=== PATIENT | male | born 1960 | race Caucasian/White ===

== ENCOUNTER 2017-03-07 13:40 | Inpatient (IN) ==
--- NOTE | 2017-03-07 14:07 | PROVIDER DOCUMENTATION ---
HPI-Psychological Disorder - General Chief Complaint: Psych Stated Complaint: SI Time Seen by Provider: 03/07/17 13:46 Source: patient, EMS Allergies/Adverse Reactions: Patient Allergies Allergy/AdvReac Type Severity Reaction Status Date / Time lisinopril Allergy Severe affected Verified 03/07/17 13:43 kidney function Home Medications: Home Medication List Medication Instructions Recorded Confirmed Last Taken Type Clonidine [Catapres] 0.2 mg PO BID 11/22/13 03/07/17 01/23/14 04:00 History Diltiazem HCl [Dilt-Xr] 240 mg PO BID 11/22/13 03/07/17 01/23/14 04:00 History Hydrocodone/Acetaminophen [[place] 1 each PO Q4-6H PRN PRN #60 tablet 01/25/14 Unknown Rx 7.5-325 Tablet] Rivaroxaban [Xarelto] 10 mg PO Q24H #0 tablet 01/25/14 03/07/17 Unknown Rx - History of Present Illness-Psych Nature of Presenting Problem: 56 yo male presents to ER via EMS. EMS states he was found in a field with 2 listerine bottles beside him. EMS also reports that patient told them that he wanted to walk in front of a diesel truck. Patient states he drinks daily and takes opiates when they are available to him. On exam patient has an abnormally large and swollen right testicle that he states has been like that for a while. He states he was supposed to follow up for surgery but because mother he never did. There were no imaging studies related to this in medical chart. Onset/Duration: reports: just prior to arrival Timing: reports: still present Severity: reports: moderate Situational problems related to:: reports: N/A Psychiatric Complaints: reports: denies symptoms Substance Use: reports: alcohol, opiates Previous psych related hospitalizations?: No Patient arrived by:: EMS called by spouse/family Similar Symptoms Previously?: Yes Recently seen or treated by another doctor?: No Review of Systems - Adult - REVIEW OF SYSTEMS - ADULT Constitutional: reports: no symptoms reported Eyes: reports: no symptoms reported Ears, Nose, Mouth & Throat: reports: no symptoms reported Cardiovascular: reports: no symptoms reported Respiratory: reports: no symptoms reported Gastrointestinal: reports: no symptoms reported Genitourinary: reports: no symptoms reported Musculoskeletal: reports: no symptoms reported Integumentary: reports: no symptoms reported Neurological: reports: no symptoms reported Psychiatric: reports: no symptoms reported Endocrine: reports: no symptoms reported Hematologic/Lymphatic: reports: no symptoms reported Allergic/Immunologic: reports: no symptoms reported All Other Systems: Reviewed and Negative Past History - Adult - PAST MEDICAL HISTORY-ADULT Review of Records: reports: Old Records Reviewed, Nursing Assessment Review, Medications Reviewed, Social history reviewed & non-contributory. Cardiovascular: reports: HTN - IMMUNIZATION STATUS Childhood Immunizations: See Nurse Assessment Flu Vaccine: See Nurse Assessment - SOCIAL HISTORY Smoking: cigarettes, greater than 1 pack/day (2 ppd) Provider spent 3-5 mins advising pt. on dangers of tobacco.: Discussed manners to quit use, and f/u contacts for add'l counseling. Substance Use: alcohol, opiates Alcohol Use Frequency: every day Number of drinks per typical drinking period:: 16-20 drinks Living Situation: homeless Physical Exam-Psych Focus - Physical Exam-Psych Initial Vital Signs Reviewed: Yes Appearance: no memory impairment, alert, disheveled Neurological: alert, oriented x 3, agitated Behavior/Eye Contact/Speech: cooperative, other (slurred speech) Thoughts/Hallucinations: normal thought pattern HENMT: normocephalic/atraumatic Respiratory: normal breath sounds, no respiratory distress Cardiovascular: normal peripheral pulses, tachycardia Abdominal Exam: normal bowel sounds, soft, tenderness. negative: distended, guarding, rigid, rebound Extremity: normal inspection, no pedal edema Integumentary: abrasion(s) (right scrotum), erythema (around right scrotum inner groin bilaterally), swelling (large and swollen right testcle), tenderness Progress - PLAN OF CARE/RESULTS Progress/Plan/Lab Results: Vital Signs - 8 hr 03/07/17 13:43 03/07/17 14:00 03/07/17 14:17 Temperature 98.0 F Pulse Rate 97 H 100 H 101 H Respiratory Rate 18 19 22 Blood Pressure 90/58 101/66 86/69 O2 Sat by Pulse Oximetry 98 95 94 L 03/07/17 14:30 03/07/17 14:32 03/07/17 14:36 Temperature Pulse Rate 98 H 99 H 97 H Respiratory Rate 15 14 18 Blood Pressure 76/63 97/75 116/79 O2 Sat by Pulse Oximetry 98 95 97 03/07/17 14:39 03/07/17 14:41 03/07/17 14:45 Temperature Pulse Rate 93 H 100 H 95 H Respiratory Rate 19 12 26 H Blood Pressure 98/68 90/72 119/78 O2 Sat by Pulse Oximetry 95 95 03/07/17 14:52 03/07/17 14:55 03/07/17 14:59 Temperature Pulse Rate 94 H 95 H 92 H Respiratory Rate 21 17 19 Blood Pressure 125/90 121/88 131/93 O2 Sat by Pulse Oximetry 96 96 03/07/17 15:02 03/07/17 15:04 03/07/17 15:12 Temperature Pulse Rate 96 H 94 H 91 H Respiratory Rate 16 22 21 Blood Pressure 115/91 128/89 117/90 O2 Sat by Pulse Oximetry 95 98 96 03/07/17 15:14 03/07/17 15:28 03/07/17 15:30 Temperature Pulse Rate 95 H 93 H 94 H Respiratory Rate 16 17 20 Blood Pressure 135/82 98/68 113/73 O2 Sat by Pulse Oximetry 97 97 96 03/07/17 15:36 03/07/17 15:41 03/07/17 15:46 Temperature Pulse Rate 94 H 99 H 97 H Respiratory Rate 14 19 18 Blood Pressure 102/69 96/82 52/34 O2 Sat by Pulse Oximetry 97 100 97 03/07/17 15:49 03/07/17 15:50 03/07/17 16:12 Temperature Pulse Rate 94 H 93 H 92 H Respiratory Rate 16 20 18 Blood Pressure 107/84 119/83 118/77 O2 Sat by Pulse Oximetry 98 97 98 03/07/17 16:16 03/07/17 16:20 03/07/17 16:24 Temperature Pulse Rate 88 91 H 95 H Respiratory Rate 12 19 22 Blood Pressure 110/74 105/70 114/73 O2 Sat by Pulse Oximetry 97 97 96 03/07/17 16:28 03/07/17 16:31 03/07/17 16:34 Temperature Pulse Rate 90 89 96 H Respiratory Rate 22 13 Blood Pressure 134/87 116/81 116/68 O2 Sat by Pulse Oximetry 99 03/07/17 16:36 03/07/17 16:39 03/07/17 16:40 Temperature Pulse Rate 90 90 92 H Respiratory Rate 12 13 14 Blood Pressure 123/79 126/79 113/83 O2 Sat by Pulse Oximetry 98 97 98 03/07/17 16:42 03/07/17 17:08 03/07/17 17:11 Temperature Pulse Rate 93 H 92 H 93 H Respiratory Rate 16 18 17 Blood Pressure 124/85 119/70 104/70 O2 Sat by Pulse Oximetry 97 03/07/17 17:13 03/07/17 17:16 03/07/17 17:48 Temperature Pulse Rate 93 H 94 H 99 H Respiratory Rate 17 17 16 Blood Pressure 99/65 120/78 85/69 O2 Sat by Pulse Oximetry 97 96 98 03/07/17 17:50 03/07/17 17:56 03/07/17 17:58 Temperature Pulse Rate 99 H 93 H 97 H Respiratory Rate 17 23 23 Blood Pressure 109/68 106/83 111/70 O2 Sat by Pulse Oximetry 96 97 97 03/07/17 18:00 03/07/17 18:05 03/07/17 19:06 Temperature Pulse Rate 95 H 95 H 94 H Respiratory Rate 24 19 Blood Pressure 103/72 101/79 103/72 O2 Sat by Pulse Oximetry 97 98 96 Laboratory Results - last 24 hr 03/07/17 03/07/17 03/07/17 13:38 13:38 13:48 WBC RBC Hgb Hct MCV MCH MCHC RDW Std Deviation Plt Count MPV Immature Gran % (Auto) Neut % (Auto) Lymph % (Auto) [place] % (Auto) Eos % (Auto) Baso % (Auto) Immature Gran # (Auto) Neut # (Auto) Lymph # (Auto) [place] # (Auto) Eos # (Auto) Baso # (Auto) Sodium 132 L Potassium 2.7 L Chloride 89 L Carbon Dioxide 18 L Anion Gap 25 BUN 29 H Creatinine 2.5 H Estimated GFR/1.73 m2 27 BUN/Creatinine Ratio 12 Glucose 108 H Calculated Osmolality 271 Calcium 9.3 Total Bilirubin 0.30 AST 91 H ALT 65 H Alkaline Phosphatase 180 H Ammonia Creatine Kinase Troponin T Total Protein 7.6 Albumin 3.9 Globulin 4.0 Albumin/Globulin Ratio 1.0 TSH Free T4 Urine Source CLEAN CATCH Urine Color YELLOW Urine Clarity SL. CLOUDY A Urine pH 6.0 Ur Specific [place] 1.015 Urine Protein 1+(30 mg/dL) A Urine Ketones 1+(Small) A Urine Blood NEGATIVE Urine Nitrite NEGATIVE Urine Bilirubin NEGATIVE Urine Urobilinogen NORMAL Urine Microscopic RBC Not Reportable Urine WBC TRACE A Urine Microscopic WBC <10 Ur Epithelial Cells >10 A Urine Crystals NONE SEEN Urine Bacteria 1+ Urine Casts GRANULAR PRESENT Urine Yeast NONE SEEN Urine Glucose NEGATIVE Salicylates Urine Opiates Screen NONE DETECTED Ur Oxycodone Screen NONE DETECTED Urine Methadone Screen NONE DETECTED Acetaminophen Ur Barbituates Screen NONE DETECTED Ur Tricyclics Screen NONE DETECTED Ur Phencyclidine Scrn NONE DETECTED Ur Amphetamines Screen NONE DETECTED U Methamphetamines Scrn NONE DETECTED Urine MDMA Screen NONE DETECTED U Benzodiazepines Scrn NONE DETECTED Urine Cocaine Screen NONE DETECTED U Cannabinoids Screen NONE DETECTED Plasma/Serum Ethyl Alc 03/07/17 03/07/17 03/07/17 13:48 13:48 13:48 WBC 17.67 H RBC 5.41 Hgb 17.9 Hct 50.0 MCV 92.4 MCH 33.1 H MCHC 35.8 RDW Std Deviation 15.5 H Plt Count 238 MPV 13.3 H Immature Gran % (Auto) 1.4 H Neut % (Auto) 68.8 Lymph % (Auto) 14.7 L [place] % (Auto) 12.8 H Eos % (Auto) 2.0 Baso % (Auto) 0.3 Immature Gran # (Auto) 0.25 H Neut # (Auto) 12.14 H Lymph # (Auto) 2.60 [place] # (Auto) 2.27 H Eos # (Auto) 0.35 Baso # (Auto) 0.06 Sodium Potassium Chloride Carbon Dioxide Anion Gap BUN Creatinine Estimated GFR/1.73 m2 BUN/Creatinine Ratio Glucose Calculated Osmolality Calcium Total Bilirubin AST ALT Alkaline Phosphatase Ammonia Creatine Kinase Troponin T Total Protein Albumin Globulin Albumin/Globulin Ratio TSH 3.78 Free T4 1.76 H Urine Source Urine Color Urine Clarity Urine pH Ur Specific [place] Urine Protein Urine Ketones Urine Blood Urine Nitrite Urine Bilirubin Urine Urobilinogen Urine Microscopic RBC Urine WBC Urine Microscopic WBC Ur Epithelial Cells Urine Crystals Urine Bacteria Urine Casts Urine Yeast Urine Glucose Salicylates Urine Opiates Screen Ur Oxycodone Screen Urine Methadone Screen Acetaminophen Ur Barbituates Screen Ur Tricyclics Screen Ur Phencyclidine Scrn Ur Amphetamines Screen U Methamphetamines Scrn Urine MDMA Screen U Benzodiazepines Scrn Urine Cocaine Screen U Cannabinoids Screen Plasma/Serum Ethyl Alc 334 H 03/07/17 03/07/17 03/07/17 13:48 13:48 13:48 WBC RBC Hgb Hct MCV MCH MCHC RDW Std Deviation Plt Count MPV Immature Gran % (Auto) Neut % (Auto) Lymph % (Auto) [place] % (Auto) Eos % (Auto) Baso % (Auto) Immature Gran # (Auto) Neut # (Auto) Lymph # (Auto) [place] # (Auto) Eos # (Auto) Baso # (Auto) Sodium Potassium Chloride Carbon Dioxide Anion Gap BUN Creatinine Estimated GFR/1.73 m2 BUN/Creatinine Ratio Glucose Calculated Osmolality Calcium Total Bilirubin AST ALT Alkaline Phosphatase Ammonia Creatine Kinase 44 Troponin T 0.018 Total Protein Albumin Globulin Albumin/Globulin Ratio TSH Free T4 Urine Source Urine Color Urine Clarity Urine pH Ur Specific [place] Urine Protein Urine Ketones Urine Blood Urine Nitrite Urine Bilirubin Urine Urobilinogen Urine Microscopic RBC Urine WBC Urine Microscopic WBC Ur Epithelial Cells Urine Crystals Urine Bacteria Urine Casts Urine Yeast Urine Glucose Salicylates < 3.00 L Urine Opiates Screen Ur Oxycodone Screen Urine Methadone Screen Acetaminophen < 1.2 L Ur Barbituates Screen Ur Tricyclics Screen Ur Phencyclidine Scrn Ur Amphetamines Screen U Methamphetamines Scrn Urine MDMA Screen U Benzodiazepines Scrn Urine Cocaine Screen U Cannabinoids Screen Plasma/Serum Ethyl Alc 03/07/17 18:52 WBC RBC Hgb Hct MCV MCH MCHC RDW Std Deviation Plt Count MPV Immature Gran % (Auto) Neut % (Auto) Lymph % (Auto) [place] % (Auto) Eos % (Auto) Baso % (Auto) Immature Gran # (Auto) Neut # (Auto) Lymph # (Auto) [place] # (Auto) Eos # (Auto) Baso # (Auto) Sodium Potassium Chloride Carbon Dioxide Anion Gap BUN Creatinine Estimated GFR/1.73 m2 BUN/Creatinine Ratio Glucose Calculated Osmolality Calcium Total Bilirubin AST ALT Alkaline Phosphatase Ammonia 30 Creatine Kinase Troponin T Total Protein Albumin Globulin Albumin/Globulin Ratio TSH Free T4 Urine Source Urine Color Urine Clarity Urine pH Ur Specific [place] Urine Protein Urine Ketones Urine Blood Urine Nitrite Urine Bilirubin Urine Urobilinogen Urine Microscopic RBC Urine WBC Urine Microscopic WBC Ur Epithelial Cells Urine Crystals Urine Bacteria Urine Casts Urine Yeast Urine Glucose Salicylates Urine Opiates Screen Ur Oxycodone Screen Urine Methadone Screen Acetaminophen Ur Barbituates Screen Ur Tricyclics Screen Ur Phencyclidine Scrn Ur Amphetamines Screen U Methamphetamines Scrn Urine MDMA Screen U Benzodiazepines Scrn Urine Cocaine Screen U Cannabinoids Screen Plasma/Serum Ethyl Alc Orders Category Date Time Status Admit - [facility] Routine AdmDCTranf 03/07/17 19:16 Ordered Activity - Strict Bedrest ORDERED Care 03/07/17 19:16 Active Call Admitting on Arrival AT ADMISSION Care 03/07/17 19:18 Active IV Insertion ORDERED Care 03/07/17 14:24 Completed Neurological Check q4h Care 03/07/17 19:16 Active Resuscitation Status Routine Care 03/07/17 19:16 Ordered Vital Signs Order ROUTINE Care 03/07/17 19:16 Active Mechanical Soft Diet Diet 03/07/17 19:24 Active ABDOMEN/PELVIS W/O CONTRAST [CT] Stat Exams 03/07/17 18:19 Taken CHEST-1 VIEW [RAD] Stat Exams 03/07/17 14:25 Draft US SCROTUM [US] Stat Exams 03/07/17 15:36 Draft ACETAMINOPHEN [TDM] Stat Lab 03/07/17 13:48 Completed ALCOHOL BLOOD Stat Lab 03/07/17 13:48 Completed ALCOHOL BLOOD Stat Lab 03/07/17 18:52 Received AMMONIA [CHEM] Stat Lab 03/07/17 18:52 Completed CBC WITH ELECTRONIC DIFF [HEME] Stat Lab 03/07/17 13:48 Completed CK PROFILE [SP CHEM] Stat Lab 03/07/17 13:48 Completed COMPREHENSIVE METABOLIC PANEL [CHEM] Stat Lab 03/07/17 13:48 Completed FREE T4 Stat Lab 03/07/17 13:48 Results MAGNESIUM [CHEM] Stat Lab 03/07/17 18:52 Received SALICYLATES [TDM] Stat Lab 03/07/17 13:48 Completed TROPONIN T Stat Lab 03/07/17 13:48 Completed TSH Stat Lab 03/07/17 13:[address] W/POSS RFLX CULT [URINALYSIS] Stat Lab 03/07/17 13:38 Completed URINE DRUG SCREEN PL Stat Lab 03/07/17 13:38 Completed VITAMIN B12 Stat Lab 03/07/17 13:48 Results 0.9% Sodium Chloride Inj [Ns] 1,000 ml Med 03/07/17 14:33 Discontinued .ROUTE As Directed 0.9% Sodium Chloride Inj [Ns] 1,000 ml Med 03/07/17 19:16 Active IV 75 mls/hr 0.9% Sodium Chloride Inj [Ns] 1,000 ml Med 03/07/17 14:36 Discontinued IV 999 mls/hr CefTRIAXONE 1 GM/NS [Rocephin 1 gm/Ns] Med 03/07/17 16:57 Discontinued 1 gm in 50 ml IV NOW CefTRIAXONE 1 GM/NS [Rocephin 1 gm/Ns] Med 03/07/17 19:30 Ordered 1 gm in 50 ml IV Q24H Lorazepam [Ativan] Med 03/07/17 19:16 Active 2 mg IV Q2H PRN PRN Morphine Med 03/07/17 19:16 Active 1 mg IV Q4H PRN PRN Mvi [M.v.i.-12] 10 ml Med 03/08/17 09:00 Active Folic Acid 1 mg Magnesium Sulfate 1 gm Thiamine 100 mg 0.9% Sodium Chloride Inj [Ns] 1,000 ml IV DAILY Mvi [M.v.i.-12] 10 ml Med 03/07/17 14:24 Discontinued Folic Acid 1 mg Magnesium Sulfate 1 gm Thiamine 100 mg 0.9% Sodium Chloride Inj [Ns] 1,000 ml IV NOW Nicotine Patch [Nicoderm Patch] Med 03/07/17 19:16 Discontinued 14 mg TD NOW ONE Ns + KCl 20 Meq 1,000 ml Med 03/07/17 18:19 Discontinued IV 500 mls/hr Ns + KCl 20 Meq 1,000 ml Med 03/07/17 18:24 Discontinued IV 500 mls/hr Ondansetron [Zofran] Med 03/07/17 14:50 Discontinued 4 mg .ROUTE .STK-MED ONE Ondansetron [Zofran] Med 03/07/17 14:50 Discontinued 4 mg IV NOW ONE Ondansetron [Zofran] Med 03/07/17 19:16 Active 4 mg IV Q4H PRN PRN Pantoprazole [Protonix] Med 03/07/17 19:16 Discontinued 40 mg IV NOW ONE Potassium Chloride E.r. [Klor-Con] Med 03/07/17 17:06 Discontinued 60 meq PO NOW ONE Sodium Chloride 0.9% Med 03/07/17 19:16 Discontinued 10 ml INJ NOW ONE Telemetry [OM.EQ] Routine Oth 03/07/17 19:16 Active EKG [EKG] Stat Ther 03/07/17 14:40 Draft Transfer/Admit Order [TRANSFER] Routine Transfer 03/07/17 19:16 Ordered 1930-Notified patient of admission; he verbalized understanding. Result Diagrams: 03/07/17 13:48 03/07/17 13:48 - XRAY 1 XRAY Study: Chest Impression: Normal (negative chest) XRAY Interpretation: Interpreted by Dr. Calzada - ULTRASOUND (By Radiology) 1 US Study: Scrotum Impression: Abnormal (testicles without a distinct mass. No hydroceles. Epididymi not seen. Large heterogeneous mass like area measuring 8.5cm with flow in the scrotum but separate from the testicles. unknown etiology.) US Results: Interpreted by Dr. Calzada - CONSULTS/PCP/HOSPITALIST Notification #1 *Consult/PCP/Hospitalist*: Dr. Bradley Time Discussed: 19:15 (hospitalist) Reason/Comments: orders given Consult Disposition: Admit Departure - Departure Time of Disposition Decision: 18:15 DIAGNOSIS: Abnormal blood electrolyte level, Scrotal mass Alcohol intoxication Qualifiers: Complication of substance-induced condition: uncomplicated Qualified Code(s): F10.120 - Alcohol abuse with intoxication, uncomplicated Acute renal failure Qualifiers: Acute renal failure type: unspecified Qualified Code(s): N17.9 - Acute kidney failure, unspecified Disposition: ADMITTED INPATIENT 09 Certified Medical Emergency: Emergent Condition: Fair Referrals and Follow-Ups: None,PCP [Primary Care Provider] - Attestation - Physician/ HAO Attestation Patient care was provided by Advanced Practice Provider:: Yes Advanced Practice Provider:: Rachell Alcaraz Advanced Practice Provider documentation review:: The Mid-level provider documentation, treatment plan and medical decision making was reviewed by the physician who agrees with all treatment and medical decision making by the [facility].
[2017-03-07 14:13] LABS: MANUAL DIFF NEEDED? NO
[2017-03-07 14:21] LABS: BASO% 0.3 % (0.0-0.8); EOS# 0.35 X1000 (0.0-0.7); HEMOGLOBIN 17.9 g/dL (14.0-18.0); IMM GRAN# 0.25 X1000 (0.0-0.04); IMM GRAN% 1.4 % (0.0-0.5); LYMPH% 14.7 % (20.5-51.1); MCH 33.1 PG (27-31); MCHC 35.8 g/dL (33-37); MCV 92.4 FL (81-99); MONO# 2.27 X1000 (0.11-0.59); MONO% 12.8 % (1.7-9.3); MPV 13.3 FL (7.4-10.4); NEUT% 68.8 % (42.2-75.2); PLT 238 X1000 (130-400); RBC 5.41 XMIL (4.7-6.1)
[2017-03-07] MEDS ORDERED: NS 1,000 ML ONE (14:33)
[2017-03-07] MEDS ORDERED: NS 1,000 ML IV ONE ×2 (14:36→19:16)
[2017-03-07] MEDS: M.V.I.-12 10 ML, FOLIC ACID 1 MG, MAGNESIUM SULFATE 1 GM, THIAMINE 100 MG in NS 1,000 ML IV ONE ×2 (14:37→15:19)
[2017-03-07 14:41] LABS: ACETAMINOPHEN < 1.2 ug/mL (10-30)
[2017-03-07] MEDS ORDERED: ZOFRAN IV ONE (14:50)
[2017-03-07] MEDS ORDERED: ZOFRAN ONE (14:50)
[2017-03-07 14:59] LABS: FREE T4 1.76 ng/dL (0.93-1.70)
[2017-03-07 15:00] LABS: ALBUMIN 3.9 g/dL (3.5-5.0); CALCIUM 9.3 mg/dL (8.8-10.2); POTASSIUM 2.7 mmol/L (3.5-5.1); TOTAL BILIRUBIN 0.3 mg/dL (0.20-1.00); TOTAL PROTEIN 7.6 g/dL (6.3-8.3)
--- NOTE | 2017-03-07 15:04 | ED EKG INTERP ---
This chart was entered by Eduarda Gamez Scribe, acting as scribe for Acosta Wayne MD. EKG Interpretation - EKG Time of EKG reading by physician:: 14:51 EKG Read and Signed by:: Acosta Wayne EKG Interpretation (*Must complete 3 of following elements*): Abnormal Rate: 93 Rhythm: normal sinus rhythm Comments: prolonged QT This chart was documented by the indicated scribe, (Eduarda Gamez Scribe) and accurately reflects the services I performed and decisions made by me, Acosta Wayne MD, as attested by the provider's signature.
--- NOTE | 2017-03-07 15:12 | EKG Report ---
Test Performed on : 03/07/2017 2:51:20 PM Test Reason : hypotensive Blood Pressure : / mmHG Vent. Rate : 093 BPM Atrial Rate : 093 BPM P-R Int : 166 ms QRS Dur : 100 ms QT Int : 396 ms P-R-T Axes : 056 -04 054 degrees QTc Int : 492 ms Normal sinus rhythm. Prolonged QT Abnormal ECG When compared with ECG of 22-NOV-2013 09:41, Vent. rate has increased BY 40 BPM QT has lengthened Unconfirmed Result
--- NOTE | 2017-03-07 15:19 | Diag Imaging Result Document ---
PROCEDURE NAME: CHEST-1 VIEW - 03/07/2017 CHEST SINGLE VIEW: COMPARISON: Compared to 01/18/2014. FINDINGS: The lungs are well expanded. The heart is not enlarged. The vessels are not distended. No pneumonia. No pleural effusions identified. IMPRESSION: Negative chest.
[2017-03-07 16:09] LABS: BILIRUBIN URINE NEGATIVE (NEGATIVE); BLOOD URINE NEGATIVE (NEGATIVE); CLARITY SL. CLOUDY (CLEAR); COLOR YELLOW; GLUCOSE URINE NEGATIVE (NEGATIVE); LEUKOCYTES URINE TRACE (NEGATIVE); NITRITE URINE NEGATIVE (NEGATIVE); PROTEIN URINE 1+(30 mg/dL) mg/dL (NEGATIVE); SP GRAVITY URINE 1.015; UROBILINOGEN URINE NORMAL
[2017-03-07 16:10] LABS: URINE CAST GRANULAR PRESENT /LPF; URINE CRYSTAL NONE SEEN /HPF; URINE CULTURE PL NEEDED? YES; URINE EPITHELIAL CELLS >10 /HPF (<10); URINE SOURCE CLEAN CATCH; URINE WBC <10 /HPF (<10)
[2017-03-07 16:31] LABS: UR AMPHETAMINES QUAL NONE DETECTED (NONE DETECT); UR BARBITUATES QUAL NONE DETECTED (NONE DETECT); UR BENZODIAZEPIN QUAL NONE DETECTED (NONE DETECT); UR CANNABINOIDS QUAL NONE DETECTED (NONE DETECT); UR COCAINE QUAL NONE DETECTED (NONE DETECT); UR MDMA QUAL NONE DETECTED (NONE DETECT); UR METHADONE QUAL NONE DETECTED (NONE DETECT); UR METHAMPHETAMINE QUAL NONE DETECTED (NONE DETECT); UR OPIATES QUAL NONE DETECTED (NONE DETECT); UR OXYCODONE QUAL NONE DETECTED (NONE DETECT); UR PCP QUAL NONE DETECTED (NONE DETECT); UR TCA QUAL NONE DETECTED (NONE DETECT)
[2017-03-07] MEDS ORDERED: ROCEPHIN 1 GM/NS 1 GM/50 ML IVPB IV ONE (16:57)
[2017-03-07] MEDS ORDERED: KLOR-CON PO ONE (17:06)
--- NOTE | 2017-03-07 17:09 | Diag Imaging Result Document ---
PROCEDURE NAME: US SCROTUM - 03/07/2017 SCROTAL ULTRASOUND: FINDINGS: The right testicle measures 3.7 cm in length and the left testicle measures 4.7 cm in length. Somewhat heterogeneous echotexture bilaterally. Blood flow is documented to both testicles. No distinct testicular mass. Neither epididymis is identified. No hydroceles. There is a large heterogeneous area within the sac measuring approximately 4.8 x 8.5 x 4.5 cm. There is blood flow through this area. No hydroceles. IMPRESSION: Nonspecific large heterogeneous area with flow in the scrotal sac but separate from the testicles of uncertain etiology. This measures over 8.5 cm in length. Tumor or infection are the mostly likely diagnosis. A preliminary report was given at 4:49 PM. MTDD
[2017-03-07] MEDS ORDERED: NS + KCL 20 MEQ 1,000 ML IV SCH ×2 (18:19→18:24)
[2017-03-07] MEDS ORDERED: SODIUM CHLORIDE 0.9% INJ ONE (19:16)
[2017-03-07] MEDS ORDERED: PROTONIX IV ONE ×3 (19:16→22:00)
[2017-03-07] MEDS ORDERED: NICODERM PATCH TD ONE (19:16)
[2017-03-07] MEDS ORDERED: MORPHINE IV PRN (19:16)
[2017-03-07] MEDS ORDERED: ZOFRAN IV PRN (19:16)
[2017-03-07] MEDS ORDERED: ROCEPHIN 1 GM/NS 1 GM/50 ML IVPB IV SCH (19:30)
--- NOTE | 2017-03-07 19:53 | Diag Imaging Result Document ---
PROCEDURE NAME: ABDOMEN/PELVIS W/O CONTRAST - 03/07/2017 CT ABDOMEN AND PELVIS WITHOUT CONTRAST: FINDINGS: No contrast administered per request of the referring provider. A dose reduction protocol was used. Compared with images of the abdomen from the CT renal angiogram of 09/19/2013. The liver is of diffusely decreased attenuation consistent with fatty infiltration. There is no focal liver lesion identified. The spleen is unremarkable except for a calcified granulomas from old granulomatous disease. The adrenal glands, and pancreas are unremarkable. There are no calcified gallstones or pericholecystic inflammation identified. There are nonobstructing stones in the bilateral kidneys. There is no ureteral stone or hydronephrosis identified. The distal most ureters are obscured by artifacts from bilateral metallic hip prostheses. There are no abnormally enlarged lymph nodes identified. There is a large right inguinal hernia which contains small bowel. The inferior extent of the hernia is not included on this exam. The hernia may also include the cecum. It is not clear if the hernia corresponds with the abnormality seen on the earlier scrotal ultrasound from today. There is no evidence of bowel obstruction. There is no gross bowel wall thickening identified. There is no abscess identified. There is no free air. There is no substantial free fluid identified. IMPRESSION: 1. Large right inguinal hernia which contains small bowel and apparently the cecum. The inferior extent of the hernia is located below the lowest image of the exam. There is no evidence of bowel obstruction. There is no gross bowel wall thickening identified. 2. No abscess identified. No free air. 3. Fatty infiltration of liver. 4. Nonobstructing stones in bilateral kidneys. 5. Please note that this exam does not specifically evaluate the scrotum. [facility]
[2017-03-07] MEDS: ATIVAN IV PRN (22:10)
[2017-03-07] MEDS ORDERED: CALMOSEPTINE OINTMENT TOP PRN (22:15)
[2017-03-07] MEDS ORDERED: SODIUM CHLORIDE 0.9% 10 ML ONE (22:18)
[2017-03-07] MEDS: FLOMAX PO SCH (22:27)
[2017-03-08 06:14] LABS: MANUAL DIFF NEEDED? NO
[2017-03-08 06:30] LABS: BASO% 0.2 % (0.0-0.8); EOS# 0.12 X1000 (0.0-0.7); EOS% 0.8 % (0.0-10.0); HEMATOCRIT 40.4 % (42.0-52.0); IMM GRAN% 0.7 % (0.0-0.5); LYMPH# 1.94 X1000 (1.2-3.4); LYMPH% 12.6 % (20.5-51.1); MCH 32.6 PG (27-31); MCHC 34.7 g/dL (33-37); MONO# 1.93 X1000 (0.11-0.59); MONO% 12.6 % (1.7-9.3); MPV 12.7 FL (7.4-10.4); NEUT% 73.1 % (42.2-75.2); PLT 244 X1000 (130-400)
[2017-03-08 06:49] LABS: AGAP 19; ALBUMIN 3.1 g/dL (3.5-5.0); ALKALINE PHOSPHATASE 128 U/L (32-122); BUN 19 mg/dL (8-22); CALCIUM 7.3 mg/dL (8.8-10.2); CHLORIDE 103 mmol/L (98-107); COSMO 276; GOT 68 U/L (10-34); GPT 49 U/L (10-44); POTASSIUM 3.3 mmol/L (3.5-5.1); SODIUM 138 mmol/L (136-145); TCO2 16 mmol/L (25-35); TOTAL PROTEIN 4.9 g/dL (6.3-8.3)
[2017-03-08] MEDS ORDERED: KLOR-CON PO ONE (06:52)
[2017-03-08] MEDS ORDERED: MORPHINE IV PRN (07:48)
[2017-03-08] MEDS ORDERED: APRESOLINE PO SCH (08:00)
[2017-03-08] MEDS: APRESOLINE IV PRN ×2 (08:36→23:11)
[2017-03-08] MEDS: NICODERM PATCH TD SCH (08:36)
[2017-03-08] MEDS: ATIVAN IV PRN ×2 (08:36→21:16)
[2017-03-08] MEDS: APRESOLINE PO SCH ×3 (08:36→21:16)
[2017-03-08] MEDS: M.V.I.-12 10 ML, FOLIC ACID 1 MG, MAGNESIUM SULFATE 1 GM, THIAMINE 100 MG in NS 1,000 ML IV SCH (09:39)
[2017-03-08] MEDS ORDERED: VANCOMYCIN IV PER PHARMACY MISC SCH (10:15)
[2017-03-08] MEDS ORDERED: VANCOMYCIN 1,800 MG in NS 250 ML IV ONE ×4 (11:00)
[2017-03-08] MEDS: PROTONIX IV SCH (16:04)
[2017-03-08] MEDS: SODIUM CHLORIDE 0.9% INJ SCH (16:04)
[2017-03-08] MEDS: ROCEPHIN 1 GM/NS 1 GM/50 ML IVPB IV SCH (16:08)
[2017-03-08] MEDS: LIBRIUM PO SCH ×2 (16:40→23:11)
--- NOTE | 2017-03-08 16:53 | HISTORY AND PHYSICAL ---
CHIEF COMPLAINT: Patient brought in by the EMS secondary to altered mental status. HISTORY OF PRESENT ILLNESS: A 56-year-old, male with a past medical history of hypertension, alcohol abuse and possible drug abuse brought in by EMS. EMS states that he was he was found in a field with 2 bottles, apparently alcohol. This patient is a heavy drinker and apparently he stopped drinking 5-6 days ago and yesterday he started having anxiety and actually he wanted to kill himself. He made a plan. His plan was to step in front of a truck. Apparently as per the patient, he went to a place to do that but then he had more anxiety and he could not do it so he decided to go ahead and start drinking. As per the patient, he was walking back home and he felt so weak that he decided to just take a rest and then EMS picked him up and brought him over here. Upon examination in the emergency department, he as found to have a large testicles, also noticed there is some redness, hot, and signs of scratching, likely this patient has cellulitis. An alcohol level was elevated, with a WBC of 17.6. Hypokalemic. REVIEW OF SYSTEMS: A 56 years old disheveled male, with no suicidal ideation at this moment. The rest of the 14 points of the review of system were reviewed. All of them negative except as per HPI. FAMILY HISTORY: Noncontributory. PAST MEDICAL HISTORY: Alcohol abuse, possible drug abuse, hypertension. PAST SURGICAL HISTORY: As per the records, he had left hip degenerative joint disease status post left total hip arthroplasty done in 2013. SOCIAL HISTORY: This patient drinks every day, typically 16-20 beers, apparently he is homeless and if has to opportunity of taking pills like opiates he will do it. OBJECTIVE: Vital Signs: Upon admission temperature 98 degrees, pulse 97, blood pressure 90/58, O2 saturation 98 on room air. HEENT: Head normocephalic. No trauma. PERRLA. Neck: Supple. No JVD. No masses. Central trachea. Chest: Clear to auscultation. No wheezing. No rales. Mucosa is dry. Abdomen: Soft, nontender, nondistended. No hepatosplenomegaly. Extremities: No edema. No clubbing. No cyanosis. Genital area: He has a large right inguinal hernia, the size is around 15-17 cm of diameter. Neurologic: The patient is alert and oriented x3. No focal neurological deficits. No suicidal ideation. At this moment, as per the patient. LABORATORY DATA: Upon admission WBC 17.6, hemoglobin 17.9, hematocrit 50, platelets 238,000. Sodium 132, potassium 2.7, chloride 89, bicarbonate 18, BUN 29, creatinine 2.5, glucose 108, calcium 9.3, AST 91, AST 61, alkaline phosphatase 180. ASSESSMENT AND PLAN: 1. Altered mental status, this patient was found in the field, as per the patient, he just had a generalized weakness. This condition is getting much better, he is alert and oriented x3 at this moment with no focal neurological deficits. 2. Suicidal ideation, he started having anxiety and actually he wanted to kill himself. He made a plan. His plan was to step in front of a truck. Apparently as per the patient, he went to a place to do it but then he had more anxiety and he could not do it so he decided to go ahead and start drinking, he will be here with observation every hour by our nurses, 3. Scrotal cellulitis, this patient has been placed on ceftriaxone and vancomycin. As per the patient the pain is a little bit better. We will continue with the same management for now. 4. Large right inguinal hernia. We did a CT scan that showed a right inguinal hernia which contains small bowel and apparently the cecum as well. Probably we need to take care 1st of the infection and after that we can either transfer this patient to another facility to be able to get an evaluation by Urology or we can set up an appointment for him. But this patient is homeless and if we send this patient out of the hospital probably he will not go to his appointment. So probably we will need to do it house once this patient is more stable. 5. Alcohol intoxication, this patient is an alcoholic. I am going to start this patient on Librium and I want to keep this patient on Ativan p.r.n. 6. Hypertension, this patient when he came in, his blood pressure was around 80s and 90s but today he started having high blood pressure. I started this patient already on hydralazine 3 times a day and also 10 mg p.r.n. IV. In the morning, his blood pressure was around 180 and now he is around 130s, we will continue to monitor. 7. Deep venous thrombosis prophylaxis. This patient is on Lovenox. 8. Gastrointestinal prophylaxis. This patient will be on pantoprazole. cc: Aries Johnson MD MTDD
[2017-03-08] MEDS: FLOMAX PO SCH (21:16)
[2017-03-08] MEDS ORDERED: VANCOMYCIN 1,300 MG in NS 250 ML IV SCH ×4 (23:00)
[2017-03-09] MEDS ORDERED: CATAPRES PO ONE (00:58)
[2017-03-09] MEDS: LIBRIUM PO SCH ×4 (04:33→22:39)
[2017-03-09] MEDS: APRESOLINE IV PRN (05:51)
[2017-03-09 06:06] LABS: MANUAL DIFF NEEDED? NO
[2017-03-09 06:26] LABS: BASO% 0.2 % (0.0-0.8); EOS# 0.13 X1000 (0.0-0.7); HEMATOCRIT 38.6 % (42.0-52.0); HEMOGLOBIN 13.3 g/dL (14.0-18.0); IMM GRAN# 0.07 X1000 (0.0-0.04); IMM GRAN% 0.6 % (0.0-0.5); LYMPH# 1.71 X1000 (1.2-3.4); LYMPH% 13.7 % (20.5-51.1); MCH 32.6 PG (27-31); MCHC 34.5 g/dL (33-37); MCV 94.6 FL (81-99); MONO% 12.8 % (1.7-9.3); MPV 13.3 FL (7.4-10.4); NEUT% 71.7 % (42.2-75.2); PLT 245 X1000 (130-400); RBC 4.08 XMIL (4.7-6.1)
[2017-03-09 06:36] LABS: AGAP 12; BUN 13 mg/dL (8-22); CALCIUM 7.9 mg/dL (8.8-10.2); CHLORIDE 108 mmol/L (98-107); COSMO 277; POTASSIUM 2.9 mmol/L (3.5-5.1); SODIUM 139 mmol/L (136-145); TCO2 20 mmol/L (25-35)
[2017-03-09] MEDS ORDERED: KLOR-CON PO ONE (07:46)
[2017-03-09] MEDS ORDERED: CALCIUM GLUCONATE 1 GM in NS 50 ML IV ONE (08:00)
[2017-03-09] MEDS: NICODERM PATCH TD SCH (09:08)
[2017-03-09] MEDS: LOVENOX SUBQ SCH (09:08)
[2017-03-09] MEDS: CATAPRES PO SCH (09:09)
[2017-03-09] MEDS: APRESOLINE PO SCH ×3 (09:09→20:30)
[2017-03-09] MEDS: ATIVAN IV PRN ×3 (09:09→20:32)
[2017-03-09] MEDS: M.V.I.-12 10 ML, FOLIC ACID 1 MG, MAGNESIUM SULFATE 1 GM, THIAMINE 100 MG in NS 1,000 ML IV SCH (09:28)
--- NOTE | 2017-03-09 09:42 | PROGRESS NOTE ---
DATE: 03/09/2017 SUBJECTIVE: The patient states that he is feeling much better. He states his rectal pain has decreased. He is able to get up and down. He is having less scrotal pain. He states the edema is the same as it has been for the last 6-8 months. He denies any alcohol withdrawal. OBJECTIVE: Vital Signs: Blood pressure is 129/84, with a heart rate of 111, respirations are 18, temperature is 97.9 degrees, with room air saturations of 98-100%. Cardiovascular: Regular rate and rhythm. He is tachycardic. S1 and S2 are appreciated. Pulmonary: Breath sounds are clear with no increased work of breathing noted. Chest does rise and fall symmetrically with respiration. Gastrointestinal: Abdomen is soft, nontender, nondistended with bowel sounds in all 4 quadrants. : Enlarged scrotum is noted. Soft, nontender to palpation, with no redness or warmth. Neurologic: He is alert and oriented x3. Cranial nerves 2-12 grossly intact. No tremor is noted. Extremities: No clubbing, cyanosis, or edema. Calves are nontender. Pulses are palpable x4. Labs: WBC is 12.5, with hemoglobin 13.3, hematocrit 38.6, and platelets of 245, 000. Sodium is 139, potassium 2.9, BUN 13, creatinine 0.8, with a calcium of 7.9. ASSESSMENT: 1. Altered mental status. This has resolved. The patient is currently alert and oriented x3 with no focal neurological deficits. 2. Suicidal ideation. The patient denies any suicidal ideation at present. He states that he feels like it was due to alcohol withdrawal. Once he drink alcohol, he had no further desire to kill himself. 3. Scrotal cellulitis. We will continue with his antibiotics. His scrotum is enlarged. He states that this has been this way for the last 6-8 months. There is no redness and there is no tenderness. We will continue with his antibiotics. 4. Large right inguinal hernia. He will need to be ultimately evaluated by urology. This can be set up on an outpatient basis. At present, we will continue with antibiotics for the scrotal cellulitis. This must be cleared before any manipulation can be performed. 5. Alcohol intoxication. The patient normally drinks 16-20 beers,. It has been about 48 hours since he has had his last beer. He is currently on a banana bag with a Librium taper and as needed Ativan. He has no tremors. He denies any hallucinations. 6. Hypertension. We will continue to follow his vital signs and treat appropriately. 7. Hypokalemia. We will supplement and trend his labs. 8. Hypocalcemia. We will supplement and trend his labs. 9. Deep venous thrombosis prophylaxis. We will continue Lovenox. 10. Gastrointestinal prophylaxis. We will continue pantoprazole. Dictated by KRIS Reddy for Rafat Flex Morrison MD cc: KRIS Reddy Addendum: I personally evaluated and examined the patient in conjunction to the [employer] and agreed with her assessments and plans. We are waiting for psy to clear before we can plan to discharge him. Denies having any suicidal or homicidal ideations. MTDD
[2017-03-09] MEDS: VANCOMYCIN 1,800 MG in NS 500 ML IV SCH ×2 (11:34→22:39)
[2017-03-09] MEDS: PROTONIX IV SCH (14:43)
[2017-03-09] MEDS: SODIUM CHLORIDE 0.9% INJ SCH (14:43)
[2017-03-09] MEDS: KEFLEX PO SCH ×2 (14:43→20:31)
[2017-03-09] MEDS: ROCEPHIN 1 GM/NS 1 GM/50 ML IVPB IV SCH (16:51)
--- NOTE | 2017-03-09 18:16 | CONSULTATION ---
DATE OF CONSULTATION: 03/09/2017 HISTORY OF PRESENT ILLNESS: This is a 56-year-old, alcoholic male, who presented after a suicide attempt and alcohol overdose, who was found down and presented emergency department. He was admitted and had been treated with IV fluids and DT prophylaxis and vitamin replacement. He had a large right inguinal hernia noted on exam. CT scan was obtained that confirmed this he also has some skin changes overlying this, consistent with excoriation which he picks at regularly. Denies any nausea, vomiting, or changes in bowel habits. History somewhat difficult because he is a little drowsy still from his overdose. Who was admitted on the . PAST MEDICAL HISTORY: 1. Alcoholism. 2. Hypertension. PAST SURGICAL HISTORY: He has had bilateral hip replacements. Had an inguinal hernia, but he states he has had this for most of his life. SOCIAL HISTORY: Drinks every day, 16 to 20 beers, homeless. Does use prescription narcotics. 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 FAMILY HISTORY: Noncontributory. REVIEW OF SYSTEMS: 10 point negative other than HPI PHYSICAL EXAMINATION: Vital Signs: Temperature is 98.1 degrees, pulse 109, blood pressure 153/99, oxygen saturation 100% on room air. General: He is alert, in no acute distress. Does appear warranted, although he is quite disheveled and unkempt. Cardiovascular: Normal rate and regular rhythm. Pulmonary: No increased work of breathing. Abdomen: Soft, nontender, nondistended. There is a large right inguinal hernia that is at least partially reducible. There is no erythema of the skin. There is some chronic excoriations and scabbing on the right scrotum, which he scratches and picks at. The left side it is difficult to tell if there is a hernia here due to the size of the right-sided hernia, but do not feel anything obvious. Integument: Otherwise warm and dry without lower extremity edema. There is bilateral hip incision from his previous hip replacements. I do not feel any inguinal adenopathy and no cervical adenopathy. No jaundice on his integument exam. Neurologic: Sleepy but arousable flat affect. Psychiatric: not agitated LABS: White count 12, hematocrit 38, platelets are 245,000. Creatinine 0.8, this down from 2.5 at admission. Glucose 93. LFTs: AST and ALT are mildly elevated. On admission 91, 65, alkaline phosphatase 180. Bilirubin is normal. I do not see coags. Check this admission. Urinalysis: Urine drug screen is negative but his plasma alcohol was 224. No nitrates or leukocyte esterase noted in his urine. CT scan shows a large right inguinal hernia. Small bowel and cecum, not fully characterized on the CT scan, but there is no evidence of abscess or free air. Gets renal stones bilaterally. Ultrasound of scrotum shows large heterogeneous area with flow, 8.5 cm in length adjacent to the scrotum. No evidence of testicular torsion. ASSESSMENT AND PLAN: This is a 56-year-old alcoholic male admitted with alcohol overdose, toxicity, and suicide attempt. He has a large chronic longstanding right inguinal hernia that is very soft. I do not see any acute skin changes. There is some chronic excoriations related to scratching over the right hemiscrotum, but this is not ulceration, very superficial, and the skin appears to be healthy and intact and underlying this area. He is not clinically obstructed. I do not see any evidence of bowel compromise on exam or on CT scan, and it is at least partially reducible. Given all that he has got medically going on, do not recommend surgical repair at this time, especially with the focal superficial skin infection of his right scrotum. Recommend treating this with antibiotics and local wound care prior to undergoing elective hernia repair. I have given him my card. Continue to follow along, but right now his medical issues are more pressing and we can see him as an outpatient to schedule his surgery. I have discussed risks, benefits, and alternatives of this with the patient. He understands and discussed signs and symptoms of obstruction. He understands and will present back if this develops. Although given the broad-based nature of the hernia, suspect this is unlikely to happen. cc: Kelly Thompson MD [facility]
[2017-03-09] MEDS: FLOMAX PO SCH (20:31)
[2017-03-09] MEDS ORDERED: KLOR-CON PO SCH (21:00)
[2017-03-10] MEDS: KEFLEX PO SCH ×4 (01:39→19:17)
[2017-03-10] MEDS: ATIVAN IV PRN ×5 (01:40→23:32)
[2017-03-10] MEDS: LIBRIUM PO SCH ×4 (04:18→22:04)
[2017-03-10] MEDS: APRESOLINE IV PRN (04:19)
[2017-03-10] MEDS: LOVENOX SUBQ SCH (08:43)
[2017-03-10] MEDS: APRESOLINE PO SCH ×3 (08:44→20:17)
[2017-03-10] MEDS: CATAPRES PO SCH (08:44)
[2017-03-10] MEDS: NICODERM PATCH TD SCH (09:12)
[2017-03-10] MEDS: M.V.I.-12 10 ML, FOLIC ACID 1 MG, MAGNESIUM SULFATE 1 GM, THIAMINE 100 MG in NS 1,000 ML IV SCH (10:13)
[2017-03-10] MEDS: VANCOMYCIN 1,800 MG in NS 500 ML IV SCH (10:36)
[2017-03-10] MEDS ORDERED: STERILE WATER INJ. ONE (14:11)
[2017-03-10] MEDS: PROTONIX IV SCH (14:13)
--- NOTE | 2017-03-10 14:29 | PROGRESS NOTE ---
DATE: 03/10/2017 SUBJECTIVE: The patient is a little drowsy and sleepy this morning. No complaints. OBJECTIVE: Vital Signs: Blood pressure 167/90, pulse of 104, respirations 18, temperature 98.8 degrees, saturation is 100% room air. General Appearance: Well-developed, well-nourished white male, in no acute distress. HEENT: Anicteric. Clear conjunctivae. Neck: Supple. No JVD. No bruit. Cardiovascular: S1, S2. Normal rate and rhythm. No murmur, rubs, or gallops. Pulmonary: Clear to auscultation bilaterally. GI: Soft, nontender, nondistended. Normoactive bowel sounds. Genitourinary: He has a large scrotum with mild cellulitis and hernia that is partially reducible. Extremities: No clubbing, cyanosis, or edema. LABORATORY: His white count is 12.5, hemoglobin 13.3, hematocrit 38.6, platelets of 245,000. Chemistry: Sodium 139, potassium 2.9, chloride 109, bicarb 20, BUN 13, creatinine 0.8, glucose of 93. ASSESSMENT AND PLAN: This is a 56-year-old white male with a large scrotal hernia with reducible small bowel, no strangulation, admitted for cellulitis of the scrotum. 1. Cellulitis of the scrotum, very superficial. Probably due to irritation. Will continue ceftriaxone for now. Will with Keflex. Will stop the vancomycin. 2. Hernia to the scrotum. General surgery was consulted and will treat his cellulitis first before we consider doing the repair of his hernia. Most likely it is going to be down the road. 3. Hypertension. We will continue Catapres. 4. Depression and suicidal ideations. We are waiting for [facility] to evaluate the patient before we discharge. 5. Social issue. The patient lives at home without water, electricity, and having trouble buying his medication. We will consult social worker palliative care to see if we can help him. The patient should be able to get Keflex at a local store for very minimal cost, if not free. 6. Gastroesophageal reflux disease. Will continue Protonix. 7. Benign prostatic hypertrophy. Will continue Flomax. 8. Hypertension. Again, keep him on clonidine and hydralazine. 9. Deep vein thrombosis prophylaxis. Patient is on Lovenox. 10. Code status. The patient is a full code.
[2017-03-10] MEDS: ROCEPHIN 1 GM/NS 1 GM/50 ML IVPB IV SCH (16:45)
[2017-03-10] MEDS: FLOMAX PO SCH (20:17)
[2017-03-11] MEDS: KEFLEX PO SCH ×2 (01:06→07:53)
[2017-03-11] MEDS: ATIVAN IV PRN ×2 (03:00→08:04)
[2017-03-11] MEDS: LIBRIUM PO SCH ×2 (04:09→11:54)
[2017-03-11] MEDS ORDERED: APRESOLINE PO SCH (07:28)
[2017-03-11] MEDS: LOVENOX SUBQ SCH (08:03)
[2017-03-11] MEDS: NICODERM PATCH TD SCH (08:03)
[2017-03-11] MEDS: CATAPRES PO SCH (08:03)
[2017-03-11 11:41] VITALS: BP 140/86
--- NOTE | 2017-03-12 11:21 | DISCHARGE SUMMARY ---
ADMISSION DATE: 03/07/2017 DISCHARGE DATE: 03/11/2017 DIAGNOSES: 1. Scrotal cellulitis, superficial, resolving. 2. Right inguinal hernia to the scrotum. 3. Hypertension. 4. Suicidal ideation. 5. Alcohol abuse with recent alcohol intoxication. 6. Acute renal failure, resolved, most likely secondary to dehydration. CONSULTS: Kelly Thompson MD DIAGNOSTICS: 1. 03/07/2017 chest x-ray revealed negative chest. 2. 03/07/2017 scrotal ultrasound revealed a large heterogeneous area with flow in the scrotal sac, but separate from the testicles. Blood flow is documented to both testicles. No distinct testicular mass. No hydroceles. 3. CT of the abdomen and pelvis large right inguinal hernia which contains small bowel and apparently the cecum, with no evidence of bowel obstruction. No free air. No abscess. Non- obstructing bilateral kidney stones. 4. Microbiology: Urine culture revealed no growth. 5. Blood cultures x2 revealed no growth after 48 hours. HOSPITAL COURSE: Mr. Norman presented to the emergency room via EMS after being found in a field with two bottles of reported Listerine. The patient stated that he is a heavy drinker any he had stopped drinking 5-6 days prior to admission. He developed anxiety. He started going through alcohol withdrawals. He stated he wanted to kill himself, stating he was going to step in front of a truck. Once he got alcohol, his anxiety did decrease. He was found have a blood alcohol of 240. He was treated with alcohol withdrawal protocol, giving Librium taper, as well as Ativan p.r.n. with a banana bag and IV hydration. He has had no signs of DTs. He is doing well. He was found to have an enlarged right scrotum. CT scan of the abdomen and pelvis, as well as scrotal ultrasound was performed. He was evaluated by Dr. Patrick Thompson in General Surgery. He does have a right inguinal hernia. Dr. Thompson stated that this is soft, that Dr. Thompson feels can be repaired on an outpatient basis once his scrotal cellulitis has been resolved. He did instruct the patient to call to make an appointment to have this repaired. He was found to have scrotal cellulitis. There is a superficial area that appeared to be from irritation or scratching. He was treated with Vancomycin, as well as Rocephin. Initially, he will be discharged on Keflex p.o. for 7 days, having received 4 days of IV antibiotics. He was noted to be hypertensive, for which he was given Apresoline 3 times a day, as well as clonidine. We will continue these. Mr. Norman has denied any suicidal ideation. He states that when without alcohol he becomes very anxious and he does not want to live this way. He did have a plan and his plan was to walk down the belt line and step in front of a truck. He was evaluated by Jason Choe, who recommended inpatient treatment. They will not take the patient as he does have dual diagnoses. A bed was found at [facility]. DISCHARGE PHYSICAL EXAMINATION: Cardiovascular: Regular rate and rhythm. S1 and S2 appreciated. Pulmonary: Breath sounds are clear with no increased work of breathing noted. Gastrointestinal: Abdomen is soft, nontender, nondistended, with bowel sounds in all 4 quadrants. Genitourinary: He does have an enlarged scrotum. There is a small area that is scabbed. He has no redness. He is not tender. He denies any difficulty voiding. Extremities: No clubbing, cyanosis, or edema. Pulses are palpable x4. Calves are nontender. DISCHARGE MEDICATIONS: 1. Clonidine 0.1 p.o. daily. 2. Apresoline 50 mg at 9 AM, 3 PM, and 9 PM. 3. Flomax 0.4 at bedtime. 4. Keflex 500 mg p.o. q.6 hours x7 days. DISCHARGE ACTIVITY: As tolerated. DISCHARGE DIET: Regular. FOLLOWUP: 1. He is to call Dr. Patrick Monroy and set up an appointment as they discussed for his right inguinal hernia repair after rehab. 2. He is being discharged to [facility] in stable condition via EMS. Dictated by KRIS Reddy for Luis Fernando Dubose MD cc: KRIS Reddy MD
== END 2017-03-11 12:46 ==
LOC: P.ED 13:40 → SUATTDRO 20:01 → P.MEDSURG 20:01
PROVIDERS: ATTEND Family Medicine

== ENCOUNTER 2017-04-01 09:33 | Inpatient (IN) ==
[2017-04-01] MEDS ORDERED: KEFZOL ONE (09:57)
[2017-04-01] MEDS ORDERED: XYLOCAINE 1% ONE (09:57)
[2017-04-01] MEDS ORDERED: MARCAINE 0.25% PF/EPI 1:200,000 ONE (09:57)
[2017-04-01] MEDS ORDERED: LR 1,000 ML ONE ×3 (10:17→14:18)
[2017-04-01] MEDS ORDERED: KEFZOL 2 GM/D5W 2 GM/50 ML IVPB ONE (10:17)
[2017-04-01] MEDS ORDERED: REGLAN ONE (10:39)
[2017-04-01] MEDS ORDERED: PEPCID ONE (10:39)
[2017-04-01 10:41] LABS: HEMATOCRIT 41.1 % (42.0-52.0); HEMOGLOBIN 13.5 g/dL (14.0-18.0); MCH 33.3 PG (27-31); MCHC 32.8 g/dL (33-37); MCV 101.2 FL (81-99); MPV 13.1 FL (7.4-10.4); RBC 4.06 XMIL (4.7-6.1)
[2017-04-01 10:49] LABS: INR 0.95; PROTIME 9.9 Seconds (9.2-11.7); PTT 23.7 Seconds (22.0-36.0)
[2017-04-01 10:59] LABS: CALCIUM 9.4 mg/dL (8.8-10.2); POTASSIUM 5.1 mmol/L (3.5-5.1)
[2017-04-01] MEDS ORDERED: DIPRIVAN 1% ONE (11:52)
[2017-04-01] MEDS: MORPHINE ONE ×4 (14:12→14:48)
[2017-04-01] MEDS ORDERED: NEOSTIGMINE ONE (14:17)
[2017-04-01] MEDS ORDERED: ROBINUL ONE (14:17)
[2017-04-01] MEDS ORDERED: XYLOCAINE-MPF 2% ONE (14:17)
[2017-04-01] MEDS ORDERED: ZOFRAN ONE (14:17)
[2017-04-01] MEDS ORDERED: DECADRON ONE (14:18)
[2017-04-01] MEDS ORDERED: QUELICIN (DOSE) ONE (14:18)
[2017-04-01] MEDS ORDERED: FENTANYL ONE (14:43)
[2017-04-01] MEDS ORDERED: LR 500 ML ONE (14:49)
--- NOTE | 2017-04-01 15:10 | OPERATIVE NOTE ---
PROCEDURE DATE: 04/01/2017 PREOPERATIVE DIAGNOSIS: Recurrent incarcerated right inguinal hernia. POSTOPERATIVE DIAGNOSIS: Recurrent incarcerated right inguinal hernia. PROCEDURES PERFORMED: Open repair of right inguinal hernia with plug and patch mesh. ESTIMATED BLOOD LOSS: 20 mL. ANESTHESIA: General. COMPLICATIONS: None. DRAINS: None. INDICATIONS: This is a 56-year-old male who came with a symptomatic very large right inguinal hernia. CT scan showed that this contained multiple loops of small bowel and colon. There is no obstruction. It was only partially reducible in the office. Repair was indicated. OPERATIVE FINDINGS: There was a very large sliding-type inguinal hernia containing multiple loops of small bowel, cecum and appendix. OPERATIVE NOTE: Risks, benefits and alternatives discussed with the patient. He consented to the procedure. He was seen in the preoperative area and surgery to be performed was confirmed and surgical site was marked. He was taken to the operating room. General anesthesia was induced. The pre-incisional antibiotics were administered. Hair was removed with clippers. Abdomen was prepped with chlorhexidine and draped in the usual fashion with Ioban gauze. After he was draped, a Olsno catheter was placed sterilely. He had a previous transverse incision. This was well above the anticipated level of the external ring and this was from a childhood repair. As such, we planned an incision parallel to the inguinal ligament which was mapped between the ASIS and the pubic tubercle obliquely. After time-out was performed. We performed an ilioinguinal nerve block at the level of the ASIS just medial and inferiorly to this and injected local anesthetic along the incision. Using the scalpel, we made our planned incision and carried this with electrocautery down through the subcutaneous tissues, Megan's layer. There was a crossing vein we ligated with 3-0 Vicryl sutures. We then incised the external oblique fascia opening the external ring, dissecting off the leaflets medially and laterally. There is a very large hernia here. This was able to be partially reduced after opening the external oblique. We identified the ilioinguinal nerve and divided this to prevent chronic postoperative pain. We then dissected the cremasteric fibers using electrocautery and bluntly exposing the hernia sac. Given the size of the hernia there was really hernia sac in a sac. We this. There was a cord lipoma we excised. We were able to protect the cord structures, the vessels and the vas deferens throughout this. They were quite redundant. We did at one point have the testicle delivered into the field, but were able to dissect the hernia sac off completely back to the level of the internal ring. We opened the sac, reduced this to facilitate reduction of the small bowel which was quite difficult. We did require placing him in Trendelenburg position, but this was done. One wall of the hernia sac was made up of the cecum and the terminal ileum. We dissected this off of the hernia sac leaving some sac attached to facilitate reduction. It became apparent that what appeared to be the right ureter also coursed through this direction, coming up from the retroperitoneum laterally and crossing medially towards the bladder. We protected this. After reduction of all the viscera, we used a 2-0 Prolene suture in a pursestring fashion, closed the peritoneum of the hernia sac and excised the access and passed this off. Reduced the remaining stump of the peritoneum into the abdomen. There is a large defect here. Using a [employer] plug and patch system, we used an extra-large plug, placed this in the defect and circumferentially tacked this laterally to the shelving edge of the inguinal ligament, medially to the lateral aspect of the rectus with interrupted 2-0 Prolene sutures. We then performed the patch repair, anchored to the pubic tubercle with a running 2-0 Prolene suture ran this along the shelving edge of the inguinal ligament laterally, medially in interrupted horizontal mattress fashion. We secured this to the lateral edge of the rectus muscle. This was very healthy. The floor of the inguinal canal was very attenuated and obliterated. There was not really a direct hernia defect here, but is indirect primarily, but the floor was quite stretched and attenuated, but we were able to get healthy fascia medially up to the level superior and lateral to the internal ring. We closed the leaflets of the mesh, placing it underneath the cord structures and secured this , recreating the internal ring. We opened this slightly to prevent strangulation of the cord and it easily admitted a fingertip, in addition to the cord structures. Placed the cord in neutral position on top of the mesh, irrigated this and confirmed hemostasis. There was good closure of all the defect and there was no undue tension, but no slack in the mesh either. We retracted the testicle back into the scrotum, taking up the residual redundant cord. Then after confirming hemostasis, we did irrigate the wound and soaked the mesh in Ancef soaked saline, closed the external oblique fascia in a running 3-0 Vicryl suture. Then closed Megan layer after again irrigating this wound with a running 3-0 Vicryl suture, and closed skin after irrigating the superficial wound with running 4-0 Monocryl. Dermabond was applied. I removed his Olson catheter at the conclusion the case. Final counts correct x2. He was awoken and returned to the PACU. He had no family with him today. We will plan to watch him tonight and discharge him when he has adequate return of bowel function. cc: Kelly Thompson MD MTDD
[2017-04-01] MEDS ORDERED: ZOFRAN IV PRN (16:19)
[2017-04-01] MEDS: NORCO-7.5 PO PRN ×2 (16:30→20:53)
[2017-04-01] MEDS ORDERED: FLOMAX PO ONE (17:45)
[2017-04-01] MEDS: NICODERM PATCH TD SCH (17:45)
[2017-04-01 17:48] LABS: URINE CULTURE NEEDED? NO; URINE MICRO REVIEW NEEDED? NO; URINE SOURCE CATH
[2017-04-01 17:53] LABS: BILIRUBIN URINE NEGATIVE (NEGATIVE); BLOOD URINE NEGATIVE (NEGATIVE); COLOR STRAW; GLUCOSE URINE NEGATIVE (NEGATIVE); LEUKOCYTES URINE NEGATIVE (NEGATIVE); NITRITE URINE NEGATIVE (NEGATIVE); PROTEIN URINE NEGATIVE (NEGATIVE); SP GRAVITY URINE 1.006; TURBIDITY URINE CLEAR (CLEAR); UR EPITHELIAL CELLS <10 /HPF (<10); URINE BACTERIA NEGATIVE /HPF; URINE RBC <10 /HPF (<10); URINE WBC <10 /HPF (<10); UROBILINOGEN URINE NORMAL (NORMAL)
[2017-04-01] MEDS: COLACE PO SCH (20:53)
[2017-04-01] MEDS: PERIDEX MT SCH (20:54)
[2017-04-01] MEDS: CARDIZEM LA PO SCH (20:54)
[2017-04-01] MEDS: CATAPRES PO SCH (20:54)
[2017-04-01] MEDS ORDERED: SEROQUEL PO SCH (21:00)
[2017-04-02] MEDS: NORCO-7.5 PO PRN ×4 (00:41→15:26)
[2017-04-02] MEDS: LR 1,000 ML IV SCH ×3 (02:33→09:32)
[2017-04-02] MEDS ORDERED: FLOMAX PO ONE (08:54)
[2017-04-02] MEDS ORDERED: VITAMIN B-1 PO SCH (09:00)
[2017-04-02] MEDS ORDERED: FOLIC ACID PO SCH (09:00)
[2017-04-02] MEDS: CARDIZEM LA PO SCH (09:35)
[2017-04-02] MEDS: COLACE PO SCH (09:35)
[2017-04-02] MEDS: PERIDEX MT SCH (09:35)
[2017-04-02] MEDS: NICODERM PATCH TD SCH (09:35)
[2017-04-02] MEDS: CATAPRES PO SCH (09:36)
--- NOTE | 2017-04-02 10:43 | PROGRESS NOTE ---
DATE: 04/02/2017 SUBJECTIVE: Minimal pain. No nausea, no vomiting. Voiding without difficulty after the Olson was removed this morning. He did require replacement of the Olson last night in the operating room. OBJECTIVE: Vitals: Temperature, he is afebrile. Pulse in the 70s to 80s. Blood pressure 116/64, oxygen saturation 97% on room air. Abdomen: Mildly distended, but nontender. : Incision is clean, dry and intact without cellulitis. There is no evidence of recurrent hernia. There is minimal scrotal swelling. Surprisingly minimal ecchymosis. LABS: Reviewed his labs. Nothing new, just preop labs. ASSESSMENT AND PLAN: A 56-year-old male, status post very large, incarcerated, right inguinal hernia repair. He is doing well. He has got a scrotal supporter in place. He is voiding after the Olson was removed. Will continue his Flomax. He is on his home medications. We will advance the diet to regular today if he tolerates this without any nausea. He did have quite a lot of handling of small bowel and the right colon that was involved with the hernia and I would not be shocked if he developed some degree of ileus, but will monitor him today and plan for discharge this afternoon if he does okay. He can see me back in 1 week in my office. He has his appointment already. cc: Kelly Thompson MD
[2017-04-02 16:02] VITALS: BP 144/83
== END 2017-04-02 17:34 | disposition home or self-care (01) ==
LOC: 4N 09:33 → OR 09:33 → OBSVTOIN 17:57
PROVIDERS: ADMIT Surgery; ATTEND Surgery